=== PATIENT | male | born 1995 | race Caucasian/White ===

== ENCOUNTER 2022-07-20 12:41 | Emergency (ER) | payer BC ==
[~2022-07-20] VITALS: Ht 177.8 cm; Wt 170.0 kg
[2022-07-20] MEDS ORDERED: TETANUS-DIPTH-ACEL PERTUSSIS 0.5ML SYR Tdap IM ONE (14:45)
[2022-07-20] MEDS ORDERED: CEPH-510 PO (14:50)
[2022-07-20 15:04] VITALS: BP 123/64
== END 2022-07-20 15:08 | disposition home or self-care (01) ==
LOC: EDBD 12:41 → ER 12:41
DX: S91.331A Puncture wound without foreign body, right foot, initial encounter (principal); Z88.1 Allergy status to other antibiotic agents; W22.8XXA Striking against or struck by other objects, initial encounter; Y93.89 Activity, other specified; Y92.61 Building [any] under construction as the place of occurrence of the external cause; Y99.0 Civilian activity done for income or pay
CPT/HCPCS: 90471; 90715